=== PATIENT | male | born 1980 | race Caucasian/White ===

== ENCOUNTER → 2017-07-07 | Outpatient (REF) | payer BC | LOC: M SMT 13:16 | PROVIDERS: ATTEND Urology | DX: Z30.2 Encounter for sterilization (principal) ==

== ENCOUNTER → 2017-08-25 | Outpatient (REF) | payer BC ==
[2017-08-25 12:50] LABS: IMMMOTILE SPERM CENTRIFUGED ABSENT (ABSENT); IMMOTILE SPERM ABSENT (ABSENT); MOTILE SPERM ABSENT (ABSENT); MOTILE SPERM CENTRIFUGED ABSENT (ABSENT); SEMEN APPEARANCE OPAQUE (OPAQUE); SEMEN VISCOSITY LIQUID (LIQUID); SEMEN VOLUME 3.2 ml (4.0-5.0); WBC CONCENTRATION <=1 M/ml (<=1 M/ml)
== END ==
LOC: M SMT 11:47
DX: Z30.2 Encounter for sterilization (principal)
CPT/HCPCS: 89321

== ENCOUNTER 2025-04-18 07:06 | Day surgery (SDC) | payer BC ==
[~2025-04-18] VITALS: Ht 182.9 cm; Wt 101.6 kg
[~2025-04-18 07:06] MED LIST: SEMA2.4S SQ
[2025-04-18] MEDS ORDERED: LIDOCAINE 2% 100 MG/5 ML SDV (FOR ANES.) ONE (07:07)
[2025-04-18 08:48] VITALS: TEMP 98.5
[2025-04-18 09:01] VITALS: BP 103/59; O2SAT 95
== END 2025-04-18 09:07 | disposition home or self-care (01) ==
LOC: M OPP 07:06
PROVIDERS: ATTEND Internal Medicine Gastroenterology
DX: Z12.11 Encounter for screening for malignant neoplasm of colon (principal); K64.0 First degree hemorrhoids; Z79.85 Long-term (current) use of injectable non-insulin antidiabetic drugs